=== PATIENT | male | born 1960 | race Caucasian/White ===

== ENCOUNTER → 2025-02-13 | Day surgery (SDC) | payer MEDICARE, BC ==
[~2025-02-13] VITALS: Ht 182.9 cm; Wt 99.6 kg
[2025-02-13] VITALS (8 sets, daily range): BP systolic 131–158; BP diastolic 79–100; PULSE 77–99; RESP 15–18; TEMP 98.1; O2SAT 92–100
[~2025-02-13] MED LIST: BUPIVAcaine/PF 7.5mg/ml (0.75%) 10ml vial ONE; CBD TINCTURE PO; COQ10 PO; CYAN-36 PO; EMPA25TA PO; EZET10TA80 PO; LEVO175T7 PO; LIDOcaine 2% (20mg/ml) 5ml vial ONE; MAGN400C PO; MIDAZolam 1 MG/ML 5ML VIAL ONE; ROPIVAcaine 0.5% (5mg/ml) 30ml vial ONE; ROSU5TAB51 PO; TAMS-55 PO; bacitracin 15gm ointment TP ONE; dexamethasone sod phosphate 4mg/ml inj. ONE; enalaprilat 1.25mg/ml 2ml vial IV PRN; fentaNYL /PF 50mcg/ml 5ml ampule ONE; fentaNYL/PF 50MCG/1 ML 2ML syringe ONE; labetalol 20mg/4ml (5mg/ml) syringe IV PRN; meperidine/PF 25mg/ml syringe IV PRN; midazolam 1 mg/ML 2ml injection ONE; morphine 4 MG/ML inj SYRINge IV PRN; ondansetron/PF 4mg/2ml inj IV PRN; ondansetron/PF 4mg/2ml inj ONE; propofol inj 20 ML IV ONE; ringers solution, lacted 1,000 ML IV SCH; succinylcholine 20mg/ml inj IV ONE
[2025-02-13] MEDS: ceFAZolin 2gm/dext,iso 50mL 50 ML IV ONE (05:30)
[2025-02-13] MEDS: VANCOMYCIN/H2O 1.5g/300mL PB 300 ML IV ONE (11:04)
[2025-02-13] MEDS: ringers solution, lacted 1,000 ML IV SCH (11:05)
--- NOTE | 2025-02-13 16:57 | ANESTHESIA RECORDS ---
Nerve Block Providers to CC ~ Diagnosis: Nerve Block requested by: ARNALDO KOHLER DPCarlo Neuraxial/Peripheral Nerve Block requested for Post-operative analgesia by Physician above DIAGNOSIS: Post-operative pain. (Body Area) Shoulder: [ ] Arm: [ ] Hand: [ ] Hip: [ ] Knee: [ ] Ankle: [___LEFT ] Foot: [___LEFT ] Leg: [ ] Abdomen: [ ] Other: [ ] Post-operative pain expected to be/is inadequately managed by oral or IV medicines. Regional anesthetic expected to facilitate rehabilitation and/or discharge from facility. Other:[____ ] Procedure Performed: Femoral / Saphenous: Left Popliteal Lateral: Left Time out Done?: Yes Time of Time out: 15:30 Procedure Details: PROCEDURE DETAILS: Risks, benefits and alternatives explained Informed consent obtained, and patient wishes to proceed Conscious sedation with indicated monitors Patient positioned, pertinent anatomy defined, sterile technique used Needle used: [ ] 3 1/8 inch Stimuplex Ultra 22ga [ ] 4 inch Stimuplex Ultra 20ga [ ] 6 inch Stimuplex Ultra 20ga [x ] 6 inch, Quikbloc over the needle catheter set 20ga [x ] 4 inch Quikbloc over the needle catheter set 20ga [ ]Other: [ ] Loss of twitch @ [____0.5 ]mA [x ] Single Injection & [x ] Catheter Ultrasound Guidance Used: [ x] Yes [ ] No Attempts:[ once ] Medicines injected: [x ]Clonidine Amt:[ 100 mcgs ] [x ]Dexamethasone Amt:[____4 mgs ] [x ]Ropivacaine Amt:[____0.5% 30 cc ] [x ]Bupivacaine Amt:[____0.375% 16 cc ] [ ]Lidocaine Amt:[ ] [ ]Exparel 1.33%:[ ] [ ]Epinephrine Amt[ ] [ ]Other: [ ] Intermittent aspiration during local anesthetic administration No symptoms of intraneural or intravenous injection Patient tolerated procedure well Comments Left Popliteal fossa Block Continuous nerve block catheter Insertion Pt in Rt lateral position with Left Leg flexed at 90 Degrees. Lateral approach. Ultrasound probe placed back of thigh 2 inches above the knee joint. Done under sterile conditions. Easy visualization of the Sciatic nerve. 1% xylocaine local anesthetic. Easy visualization of Spreading of local anesthetic anterior and posterior to the Sciatic nerve. Catheter tip left posterior to sciatic nerve in perineural location at the bifurcation of the nerve and catheter well secured. Meaningful conversation t throughout. No Pain or discomfort during injection. Lt Adductor Canal blk Procedure done after surgery under Spinal anesthesia. Pt supine with Lt leg rotated to Lt slightly. Easy visualization of Adductor Canal with ultra sound anterolateral to Femoral artery at the junction of upper and middle third of thigh. Able to see the tip of the needle and injected local anesthetic with the ultrasound. Left Popliteal fossa Block Continuous nerve block catheter KATIE PALOMARES MD Feb 13, 2025 16:57
[2025-02-13] MEDS: ROPIVAcaine 0.2%/PF PUMP/bolus 545 ML POPLITEAL SCH (20:15)
--- NOTE | 2025-02-14 01:01 | OPERATIVE REPORT ---
DATE OF SURGERY: 02/13/2025 DICTATING PHYSICIAN: ROBERT HANKINS DPM PREOPERATIVE DIAGNOSES: Left ankle pain, left ankle arthritis, left ankle painful retained orthopedic hardware. POSTOPERATIVE DIAGNOSES: Left ankle pain, left ankle arthritis, left ankle painful retained orthopedic hardware. PROCEDURES: * Gastrocnemius recession. * Total ankle arthroplasty with implant. * Hardware removal, all on the left foot and ankle. SURGEON: Robert Hankins DPM SLITTER CREASER SLOTTER OPERATOR: Moo Singh DPM fellow. Assistance was needed to decrease tourniquet time, help with efficiency and retraction throughout the entirety of the procedure. ANESTHESIA: General anesthesia with Dr. Duran. FINDINGS: None. COMPLICATIONS: None. SPECIMENS: None. ESTIMATED BLOOD LOSS: Less than 15 mL. HARDWARE: INBONE [employer] orthopedic TAR with a size 16 top, 16 mid, 18 base, size 4 long tibia, and size 3 talus with a 10-mm vitamin E polyethylene component. INDICATIONS: The patient presented to the office with the above-listed complaints, which have been unresponsive to conservative treatment options. Thus, surgical options have been offered along with all potential risks, complications, and surgical outcomes being fully explained to the patient's level of understanding. No guarantees were given. Clinical and radiographic data correlated with the above diagnosis. The patient was inherited to me from my partner as the patient did receive a flatfoot reconstruction and unfortunately was dealing with ankle arthritis. The patient was booked for a total ankle arthroplasty. I did spend a large amount of time with the patient reviewing his clinical exam as well as his radiographic images and I did agree with the plan, so therefore, I talked to him about the risks and benefits as well as the healing and he agreed to accept care with me. DESCRIPTION OF PROCEDURE: The patient was brought to the operating room and placed on the operating table in the supine position. The patient was induced under general anesthesia and the foot and ankle were prepped and draped in the usual aseptic fashion. Previously applied thigh tourniquet was inflated to 300 mmHg after timeout was called and preoperative antibiotics were given and dosed appropriately. Hardware removal of the left ankle. We then brought our attention to the inferior aspect of the patient's calcaneus where the two subtalar joint screws were located. We then isolated the screws with a guidewire and then a #15 blade was utilized to make incisions and then a hardware removal set was utilized to remove both of these screws. We removed them without incidence and therefore, we flushed and closed these incisions with a nylon. TAR with gastrocnemius recession. We then brought our attention to the anterior aspect of the ankle where a standard anterior incision was then made using a #15 blade. We dissected down to the level of the subcutaneous tissue with care being taken to identify and retract all vital neurovascular structures. We then identified the extensor retinaculum, which was opened up to the operative field. We identified the TA and EHL tendon and this was the layer that we went through. We made sure to protect the neurovascular bundle throughout the entirety of the procedure. We then dissected down to the level of the joint and opened up the tibiotalar joint and it was noted that there was significant osteoarthrosis as well as arthritis and osteophytic spurring. After this, we then used the paper sales representative in the room and the pre wave assembler's guidelines in order to place the [employer] INBONE external alignment jig over the ankle and then we spent a large amount of time with radiographic imaging identifying the appropriate positioning for our drill as well as our ankle cut block. We measured for a size 4 tibia, which we cut appropriately. We then also cut the talus in a flat top position. We did couple cut this and we cleaned out the gutters with a rongeur. After this, we then measured for a size 4 long and then we reamed and placed a 16 top, 16 mid and 18 base tibial stem and then we used the Lele taper in order to place the size 4 long tibial tray. We did perform a trial with a 10-mm polyethylene component and this was correct and the ankle was completely balanced, so therefore, we placed a size 3 talus and then a size 10 polyethylene component and then we moved the patient's ankle joint in an appropriate fashion and it was noted that there was a tight posterior heel cord, so therefore, we performed a gastrocnemius recession and we made a separate incision over the medial muscle bellies of the gastroc about three fingerbreadths distal to this. This was in a vertical fashion. We carefully dissected down to the level of the crural fascia. The crural fascia was opened up to the operative field and then while we held the patient's ankle in a dorsiflexed position, we then transected the aponeurosis of the gastroc with an excellent increase in the amount of dorsiflexion to the ankle. So, therefore, we re-balanced the ankle appropriately in all of the planes and we took final fluoroscopic imaging. We flushed with copious amounts of sterile normal saline and then we closed our incision in a layered fashion. #0 Vicryl was used for the closure of the retinacular tissue. We closed the subcutaneous tissue with 3-0 Vicryl and then the skin was closed in a horizontal mattress technique with 3-0 nylon. The incision was then dressed with triple antibiotic ointment followed by Adaptic, 4 x 4s and Webril. The patient was placed into a well-padded posterior splint. The patient was then taken out of general anesthesia and placed in the PACU with vital signs stable and vascular status intact to the operative foot. The patient had his tourniquet deflated before leaving the operating table. The patient recovered well in the recovery unit and I did describe his procedure and recovery to his . The patient is instructed to be nonweightbearing, but still standing for seating of the implant. The patient is instructed to follow up with me in approximately 1-2 weeks after surgery. The entire case was performed in a teaching fashion. I was available pre and postoperative to answer any questions of the patient and his family. ROBERT HANKINS DPM TID: [id number] RECEIPT: [id number] NORI/CHRISTY
== END | disposition home or self-care (01) ==
LOC: PAS 09:53
PROVIDERS: ATTEND Podiatrist Foot & Ankle Surgery
DX: M19.079 Primary osteoarthritis, unspecified ankle and foot (principal); M21.42 Flat foot [pes planus] (acquired), left foot; M25.472 Effusion, left ankle; Y92.834 Zoological garden (Zoo) as the place of occurrence of the external cause; T84.84XA Pain due to internal orthopedic prosthetic devices, implants and grafts, initial encounter; M19.072 Primary osteoarthritis, left ankle and foot; G89.18 Other acute postprocedural pain; Z79.899 Other long term (current) drug therapy; K21.9 Gastro-esophageal reflux disease without esophagitis; E11.9 Type 2 diabetes mellitus without complications; M19.90 Unspecified osteoarthritis, unspecified site; Z98.890 Other specified postprocedural states; E78.5 Hyperlipidemia, unspecified; E03.9 Hypothyroidism, unspecified; Z87.440 Personal history of urinary (tract) infections; Z87.891 Personal history of nicotine dependence
CPT/HCPCS: 20680; 27687; 27702; 64445; 64447; 73600; 82948; A4618; A6223; A6253; A6402; A6449; A7000; C1713; C1776; J0330; J0690; J1100; J2003; J2250; J2405; J2704; J2795; J3010; J3375; J3490; J7030; J7120; Z7506; Z7508; Z7512; Z7610; 76000